=== PATIENT | male | born 2000 | race Hispanic/Latino ===

== ENCOUNTER 2021-05-09 15:40 | Emergency (ER) | payer SELFPAY ==
[~2021-05-09] VITALS: Ht 177.8 cm; Wt 79.4 kg
[2021-05-09 15:41] VITALS: BP 138/77
== END 2021-05-09 20:33 | disposition left against medical advice (07) ==
LOC: EDH 15:40
DX: R10.9 Unspecified abdominal pain (principal); Z53.21 Procedure and treatment not carried out due to patient leaving prior to being seen by health care provider